=== PATIENT | female | born 1975 | race Caucasian/White ===

== ENCOUNTER → 2018-11-20 07:28 | Outpatient (CLI) | payer OTHER, SELFPAY ==
--- NOTE | 2018-11-20 | DI.US.S_ITS ---
PROCEDURE: US PELVIC COMPLETE INDICATIONS: ABDOMINAL PAIN TECHNIQUE: Real-time scanning was performed of the pelvic organs, with image documentation. Additional endovaginal scanning was necessary due to incomplete visualization of the adnexal and endometrial structures by transabdominal scanning. COMPARISON: None. FINDINGS: Transabdominal scanning: Limited scanning through the kidneys shows no hydronephrosis. No pathologic free abdominal or pelvic fluid. Endovaginal scanning: Uterus: Uterus is normal in size at 7.6 x 2.9 x 4.5 cm. The endometrium is not well-seen. Intrauterine device not well-seen. Ovaries: Ovaries not identified. No adnexal masses seen. The appendix is not visualized. IMPRESSION: 1. Endometrial complex and IUD not well-visualized. 2. Ovaries not identified. No adnexal masses seen. Dictated by: Pj GAMING Interpreted: Paige Almanza MD on 11/20/2018 at 15:47 Approved by: Paige Almanza M.D. on 11/23/2018 at 17:29
--- NOTE | 2018-11-20 | DI.US.S_ITS ---
PROCEDURE: US ABDOMEN COMPLETE INDICATIONS: ABDOMINAL PAIN TECHNIQUE: Real-time scanning was performed of the abdominal and retroperitoneal organs, with image documentation. COMPARISON: None. FINDINGS: Liver: Liver is diffusely increased in echogenicity. No focal hepatic abnormalities identified. Normal hepatic size. 7 mm hepatic cyst. Gallbladder: No gallstones identified. Normal gallbladder wall. No pericholecystic fluid. Negative sonographic Lee sign. Biliary ducts: Intrahepatic bile ducts are non-dilated. Extrahepatic bile duct not well-seen. Pancreas: Visualized portions of the pancreas are sonographically normal. Spleen: Spleen is normal in size and homogeneous in echotexture. Kidneys: Kidneys are normal in size and echotexture. Right kidney measures 11.0 cm long; left kidney measures 11.0 cm long. No hydronephrosis or nephrolithiasis. No solid masses. Aorta: Visualized aorta is normal in caliber at less than 3 cm. Iliacs: Proximal common iliac arteries are normal in caliber at less than 2.5 cm. IVC: Intrahepatic inferior vena cava is patent. Miscellaneous: No free abdominal fluid. IMPRESSION: 1. Increased hepatic echogenicity noted possibly related to hepatic steatosis but other sources of hepatocellular disease cannot be excluded. Recommend clinical correlation. 2. No source for right lower quadrant pain identified. Dictated by: Pj Cornell [facility] Interpreted: Paige Almanza MD on 11/20/2018 at 15:50 Approved by: Paige Almanza M.D. on 11/23/2018 at 17:29
== END ==
PROVIDERS: PCP Internal Medicine; Visit Provider Internal Medicine
DX: R10.31 Right lower quadrant pain (principal)
CPT/HCPCS: 76700; 76830; 76856

== ENCOUNTER → 2022-04-08 12:11 | Outpatient (CLI) | payer OTHER, SELFPAY ==
--- NOTE | 2022-04-08 12:15 | DI.RAD.S_ITS ---
PROCEDURE: XR CHEST 2V INDICATIONS: Acute Cough TECHNIQUE: 2 views of the chest were acquired. COMPARISON: [facility], , CHEST 2 VIEW, 10/19/2013, 14:37. FINDINGS: Surgical changes and devices: None. Lungs and pleura: Lungs are clear. No pleural effusions or pneumothorax. Mediastinum: Mediastinal contours are normal. Heart size is normal. Bones and chest wall: No suspicious bony abnormalities. Soft tissues appear unremarkable. IMPRESSION: No acute cardiopulmonary findings Approved by: Young Callaway M.D. on 04/08/2022 at 13:42
== END ==
PROVIDERS: PCP Internal Medicine; Referring Provider Internal Medicine; Visit Provider Internal Medicine
DX: R05.1 Acute cough (principal)
CPT/HCPCS: 0240U; 71046

== ENCOUNTER → 2022-04-08 13:57 | Outpatient (ROUT) | payer OTHER, SELFPAY ==
[2022-04-08 14:46] LABS: Influenza A - CEPHEID Flu A NEGATIVE (NEGATIVE); Influenza B - CEPHEID Flu B NEGATIVE (NEGATIVE)
[2022-04-08 14:54] LABS: COVID-19 CEPHEID PCR (VTM/NP) Negative (Negative)
== END ==
PROVIDERS: PCP Internal Medicine; Visit Provider Internal Medicine
DX: R05.1 Acute cough (principal)
CPT/HCPCS: 0240U

== ENCOUNTER 2022-11-20 07:36 | Day surgery (SDC) | payer OTHER, SELFPAY ==
--- NOTE | 2022-11-20 | PATH_ITS ---
[facility] Accession Number: [id number] No. of containers..03 Tissue . 01 Material submitted: . PART A: small bowel - SMALL BOWEL BIOPSY PART B: esophagus - ESOPHAGEAL BIOPSY PART C: colon - RANDOM COLON BIOPSIES . 01 Clinical history: . HX DIARRHEA . 01 Diagnosis: A. Small Bowel, Biopsy: Small intestinal mucosa within normal limits. No evidence of celiac disease. . B. Esophagus, Biopsy: Hyperplastic squamous mucosa. Negative for intestinal metaplasia and dysplasia. . C. Random Colon, Biopsy: Colonic mucosa within normal limits. [facility] 11/26/2022 1218 Local . 01 Electronically signed: . Amanda Alicea MD, Pathologist NPI- [id number] . 01 Gross description: . Part A: SMALL BOWEL BIOPSY: Received in formalin is 1 fragment(s) of ashley, soft tissue measuring 0.5 x 0.2 x 0.2 cm submitted entirely in 1 cassette(s) Part B: ESOPHAGEAL BIOPSY: Received in formalin are 2 fragment(s) of ashley, soft tissue measuring 0.1 x 0.1 x 0.1 cm to 0.2 x 0.2 x 0.2 cm submitted entirely in 1 cassette(s) Part C: RANDOM COLON BIOPSIES: Received in formalin are multiple fragment(s) of ashley, soft tissue measuring 0.1 x 0.1 x 0.1 cm to 0.3 x 0.3 x 0.2 cm submitted entirely in 1 cassette(s) /ANUP 11/21/2022 2234 Local . 01 Microscopic: . PAS fungal stain is obtained on part B, with appropriately staining external control, and is negative for fungal organisms. . 01 Pathologist provided ICD-10: R19.7 . 01 CPT . 512144, 332078, 103163, 913247 Specimen Comment: A courtesy copy of this report has been sent to [phone] Performed at: 01 [facility] [address] [place] [address], [place], [place] [id number] MD Kenneth Gabriel MD Phone: [phone]
[2022-11-20 07:55] VITALS: BMI 53.6
[2022-11-20 08:01] VITALS: BP 142/93; PULSE 92; RESP 22; TEMP 36.6; O2SAT 94
[2022-11-20] MEDS: LACTATED RINGERS 1,000 ML 42 ML IV (08:10)
--- NOTE | 2022-11-20 08:21 | PM.HP.1 ---
History of Present Illness History of Present Illness Date Patient Seen: 12/10/22 Chief complaint: EGD & Colonoscopy Narrative: Diarrhea PFSH Medical History Asthma (~1989) Veloz's palsy Chicken pox (~1981) Diverticular disease Hay fever (~1977) Irritable bowel syndrome (~1996) Migraines (~1986) Vaginal delivery (~01/15/10) Surgical History Anesthesia Status post colonoscopy (~2002) Status post knee surgery (~2007) Family History Father Age: 70 Cancer Hypertension High cholesterol Grandfather Hypertension Mental health problem Mother Age: 70 Mental health problem Grandfather Cancer Social History Smoking Status: Never smoker Meds Home Medications and Allergies Home Medications Medication Instructions Recorded Confirmed Type albuterol sulfate 90 mcg/actuation 2 puff INH SEE INSTRUCTIONS #1 inh 04/04/17 11/20/22 Rx aerosol inhaler (Proventil HFA) erenumab-aooe 70 mg/mL 140 mg (2 mL) SUBCUT QMONTH 05/26/18 11/20/22 Rx subcutaneous auto-injector Intractable migraine #2 mL (Aimovig Autoinjector 140 mg/2 Pack () fluticasone propionate 44 2 puff inhalation BID 11/20/22 11/20/22 History mcg/actuation HFA aerosol inhaler (Flovent HFA) omeprazole 20 mg capsule,delayed 20 mg PO DAILY 11/20/22 11/20/22 History release Allergies Allergy/AdvReac Type Severity Reaction Status Date / Time mint Allergy Severe Migraine Verified 11/20/22 07:52 pineapple Allergy Severe Migraine Verified 11/20/22 07:52 codeine [CODEINE] Allergy Mild SLEEP FOR Verified 05/20/18 09:40 DAYS pseudoephedrine Allergy Mild MIGRAINE Verified 05/20/18 09:40 [PSEUDOEPHEDRINE] Exam Vital Signs (past 8 hours): - 11/20/22 08:01 Temperature 97.8 F Pulse Rate 92 H Respiratory Rate 22 Blood Pressure 142/93 H Pulse Oximetry 94 Oxygen Delivery Method Room Air Oxygen Delivery Method Room Air Narrative Exam Narrative: Oropharynx free of lesions Chest clear to auscultation percussion Cardiac exam reveals no S3 or murmur Assessment & Plan Assessment & Plan narrative: History of continued and unexplained diarrhea. Rule out underlying inflammatory bowel disease. Risks, benefits, alternatives have been explained for EGD and colonoscopy with biopsy and terminal ileoscopy..
--- NOTE | 2022-11-20 08:22 | PM.OP.EC ---
Operative Date/Time/Diagnoses Date of procedure: 12/21/22 Procedure & Clinicians Study performed: EGD and colonoscopy Indications: Persistent diarrhea and GE reflux with dysphagia Surgeon: Ragini Ortiz Procedure Notes Procedure in detail: After informed consent was obtained the patient was placed in left lateral decubitus position. The video upper scope was placed into the oropharynx and with the patient's help swelled into the esophagus. The esophagus stomach and duodenum were carefully examined. On withdrawal, retroflexed view the GE junction was performed. The scope was removed. The patient tolerated procedure well. The patient was then turned in the colonoscope substituted. This was inserted into the rectum and advanced to the cecum. Ic valve was identified. Mucosa was carefully examined on withdrawal. The scope was removed. The patient tolerated procedure well. Blood loss none Complications none Sedation mac Findings EGD 1. Normal esophagus with wide open GE junction. Biopsies taken to rule out eosinophilic esophagitis 2. Normal stomach 3. Normal duodenal bulb and sweep biopsies taken to rule out celiac Colonoscopy 1. Normal terminal ileum 2. Normal colonoscopy to cecum. Biopsies taken to rule out microscopic colitis We will merely await biopsies before proceeding to the next step which should be PillCam to rule out small bowel disease/Crohn's disease
[2022-11-20 09:02] VITALS: BP 135/91; PULSE 96; RESP 93; TEMP 36.3; O2SAT 94
[2022-11-20 09:06] VITALS: BP 89/55; PULSE 88; RESP 18; O2SAT 95
[2022-11-20 09:13] VITALS: BP 109/79; PULSE 83; RESP 14; O2SAT 99
[2022-11-20 09:16] VITALS: BP 122/77; PULSE 81; RESP 16; O2SAT 98
== END 2022-11-20 09:30 | disposition home or self-care (01) ==
PROVIDERS: PCP Internal Medicine; Referring Provider Internal Medicine Gastroenterology; Visit Provider Internal Medicine Gastroenterology
PROC: 0DJ08ZZ Inspection of Upper Intestinal Tract, Via Natural or Artificial Opening Endoscopic (ICD-10-PCS; CPT 43235; principal; 2022-11-20 08:30)
PROC: 0DJD8ZZ Inspection of Lower Intestinal Tract, Via Natural or Artificial Opening Endoscopic (ICD-10-PCS; CPT 45378; 2022-11-20 08:30)
DX: R19.7 Diarrhea, unspecified (principal); R13.10 Dysphagia, unspecified; K21.9 Gastro-esophageal reflux disease without esophagitis
CPT/HCPCS: 45380; 43239; J2704

== ENCOUNTER → 2023-07-02 15:19 | Outpatient (CLI) | payer OTHER, SELFPAY ==
--- NOTE | 2023-07-02 | DI.RAD.S_ITS ---
PROCEDURE: XR ABDOMEN 1V INDICATIONS: Retained foreign body fragments, unspecified material TECHNIQUE: One view of the abdomen acquired. COMPARISON: None. FINDINGS: Surgical changes and devices: IUD is present. Bowel: Bowel gas pattern is normal. Soft tissues: No suspicious abdominal calcifications. Visualized solid organ contours appear normal in size. Bones: No suspicious bony lesions. IMPRESSION: No retained foreign body is identified. However, images do not include the lower most aspect of the pelvis extending to the rectum. Dictated by: Jil Casillas M.D. on 07/02/2023 at 19:36 Approved by: Jil Casillas M.D. on 07/02/2023 at 19:37
== END ==
PROVIDERS: PCP Internal Medicine; Referring Provider Internal Medicine; Visit Provider Internal Medicine
DX: Z18.9 Retained foreign body fragments, unspecified material (principal)
CPT/HCPCS: 74018

== ENCOUNTER → 2024-08-30 10:58 | Outpatient (CLI) | payer OTHER, SELFPAY ==
--- NOTE | 2024-08-30 11:00 | DI.RAD.S_ITS ---
PROCEDURE: XR CHEST 2V INDICATIONS: Acute cough TECHNIQUE: 2 views of the chest were acquired. COMPARISON: [facility], CR, XR CHEST 2V, 04/08/2022, 12:22. FINDINGS: Surgical changes and devices: None. Lungs and pleura: Lungs are clear. No pleural effusions or pneumothorax. Mediastinum: Mediastinal contours are normal. Heart size is normal. Bones and chest wall: No suspicious bony abnormalities. Soft tissues appear unremarkable. IMPRESSION: No acute cardiopulmonary abnormality is seen. Dictated by: Az Wilburn M.D. on 08/30/2024 at 22:42 Approved by: Az Wilburn M.D. on 08/30/2024 at 22:43
== END ==
PROVIDERS: PCP Family Medicine; Referring Provider Family Medicine; Visit Provider Family Medicine
DX: R05.1 Acute cough (principal)
CPT/HCPCS: 71046